=== PATIENT | male | born 1990 | race Caucasian/White ===

== ENCOUNTER 2018-12-08 07:54 | Emergency (ER) | payer BC, SELFPAY ==
[2018-12-08 07:55] VITALS: BP 154/94; PULSE 125; RESP 21; TEMP 36.9; O2SAT 97; BMI 32.3
--- NOTE | 2018-12-08 07:57 | RAD_ITS ---
STUDY: X-RAY CHEST REASON FOR EXAM: Male, 28 years old. Sudden onset of chest pain/pressure. TECHNIQUE: PA and lateral views of the chest. COMPARISON: None. FINDINGS: EKG electrodes are seen. The lungs are clear and expanded. There is no demonstrated pleural abnormality. Normal size heart. Normal mediastinum and alva. Normal visualized pulmonary arteries. Normal visualized aortic arch and descending thoracic aorta. Normal visualized thoracic spine. Normal visualized ribs, clavicles, and shoulders. There is no demonstrated abnormality of the visualized soft tissue structures of the upper abdomen. RAD/Chest PA and Lateral IMPRESSION: Normal x-ray examination of the chest. Electronically Signed: Scotty Johnson, at 8:22 EDT , Service support ,
--- NOTE | 2018-12-08 07:57 | EKG12_ITS ---
Test Reason : CP Blood Pressure : / mmHG Vent. Rate : 116 BPM Atrial Rate : 117 BPM P-R Int : 154 ms QRS Dur : 096 ms QT Int : 314 ms P-R-T Axes : 052 009 032 degrees QTc Int : 436 ms Sinus tachycardia Incomplete right bundle branch block Borderline ECG Confirmed by RK DOVE ([id number]), movie editor CAROLIN ARGUELLES ([id number]) on 12/16/2018 9:24:57 AM Referred By: TERESA Confirmed By:RK DOVE
[2018-12-08 08:02] VITALS: O2SAT 97
--- NOTE | 2018-12-08 08:03 | ED.VIS.CHEST ---
History of Present Illness Chief Complaint: Chest Pain Informant: Patient, EMS Onset: Today Activity at onset: Rest Timing: Continuous Quality: Tightness Location: Substernal Current Severity: Mild Maximum Severity: Moderate Worsened By: Nothing Relieved By: Nothing Associated Symptoms: Dyspnea, Lightheadedness Narrative: Patient presenting for evaluation secondary to chest pain. Patient reports that he was at work today and had a sudden onset of chest heaviness. This happened about 30 minutes prior to arrival. Patient states that it was associated with a mild amount of shortness of breath and lightheadedness. Patient states that he was doing some paperwork when this chest pain started. Patient has an underlying history of hypertension for which she is not treated. Patient is a non-smoker, but does use chewing tobacco. He denies any illicit drug use. He denies heavy caffeine use. He denies any DVT or PE risk factors. Review of systems otherwise negative. Past Medical History - Allergies and Home Meds Allergies/Adverse Reactions: Allergies No Known Allergies Allergy (Verified 12/08/18 08:02) Primary Care Physician: NOT,DEFINED [NON-STAFF] - Smoking Status: Former smoker Review of Systems All systems negative except as indicated Cardiovascular: Reports: Chest pain. Denies: Palpitations, Heart racing Respiratory: Reports: Dyspnea Physical Exam Vital Signs/Narrative: Vital Signs Temp Pulse Resp BP Pulse Ox 12/08/18 07:55 98.5 F 125 H 21 H 154/94 H 97 Inital Vital Signs reviewed: Yes General: Well nourished, Well developed, No Acute Distress Head: Normocephalic, Atraumatic Eyes: Perrl, EOMI ENT: Moist mucous membranes, No rhinorrhea Neck: Supple, Nontender Cardiovascular: Regular rhythm, No murmurs, Normal S1, Normal S2, Tachycardia, - - 2+ radial pulses bilaterally symmetric Abdomen: Soft, Nontender, Nondistended, Normal bowel sounds Extremities: Nontender, No edema. Negative for: Edema, Calf Tenderness Skin: Normal color, No rash Neurological: Alert, Oriented x3, Cranial nerves II-XII grossly intact, Normal Strength, Normal Sensation Psychological: Normal affect, Normal Mood Diagnostic/Tx/Re-eval - EKG Initial EKG Interpretation: - - Sinus tachycardia with a rate of 116. Normal VT and QTc intervals. Incomplete right bundle branch block morphology is noted with no evidence of acute ST segment changes or T wave changes. - Medical Decision Making Patient presented for evaluation secondary to chest pain. Patient was given aspirin and nitroglycerin and around. He was found to be somewhat tachycardic upon arrival. Chest x-ray was found to be unremarkable. CBC chemistry troponin and d-dimer were obtained which were also all found to be unremarkable. Patient's heart score is 1, I do not believe that he requires further work-up or admission. Patient's heart rate came down from about the 120s to 100. I reinterviewed the patient, and he feels that potentially this was precipitated by anxiety at work, and I would tend to agree with this. Patient's d-dimer was also negative. Patient was discharged with reassurance and follow-up with primary care. Disposition: Home ED Disposition - Plan for ED Patient: Disposition: Home or Assisted Living Diagnosis: Chest pain, Anxiety Instructions: ED Chest Pain NonCardiac Referrals: Osman Hinds, [STAFF PHYSICIAN] - As Needed
[2018-12-08 08:07] LABS: Absolute Lymphocyte Count 2.92 X10^3/ul (0.83-4.51); Absolute Neutrophil Count 4.9 X10^3/uL (2.0-7.7); Basophil# 0.05 X10^3/uL; Basophil% 0.6 % (0-1); Eosinophil# 0.48 X10^3/uL; Eosinophils% 5.3 % (0-5); Hematocrit 47.6 % (40-54); Hemoglobin 16.2 g/dl (13.0-16.5); Lymphocyte # 2.92 X10^3/ul (4.0); Lymphocyte % 32.3 % (19-41); Mean Corpuscular Hgb 31.2 pg (27.0-32.0); Mean Corpuscular Volume 91.7 fL (80-94); Mean Platelet Vol. 9.5 fl (6.2-12.0); Monocyte# 0.67 X10^3/uL; Monocyte% 7.4 % (0-10); Neutrophil # 4.91 X10^3/uL (2.7-7.7); Neutrophil % 54.2 % (47-70); Platelet Count 286 K/mm3 (150-450); RBC Distribution Width CV 12.5 % (11.6-14.6); RBC Distribution Width SD 42.1 fl (35.1-43.9); Red Blood Count 5.19 M/mm3 (4.6-6.2); White Blood Count 9.1 K/mm3 (4.4-11.0)
[2018-12-08 08:09] LABS: POSITIVE COUNT NO; POSITIVE DIFFERENTIAL NO; POSITIVE MORPHOLOGY NO
[2018-12-08] MEDS: 0.9% Normal Saline 1,000 ML 1000 ML IV (08:11)
[2018-12-08 08:22] LABS: Anion Gap 6 (5-15); BUN 8 mg/dL (7-18); BUN/Creat Ratio 7.5 RATIO (10-20); Calcium,Total 9.3 mg/dL (8.5-10.1); Chloride 105 mmol/L (98-107); Creatinine, Serum 1.06 mg/dL (0.70-1.30); EST Glomerular Filtration Rate 87 mL/min (>60); Est Glom Filt Rate - Afr Amer 106 mL/min (>60); Estimated Creatinine Clearance 106.17 ml/min; Glucose 120 mg/dL (74-106); Potassium 3.7 mmol/L (3.5-5.1); Sodium Level 138 mmol/L (136-145)
[2018-12-08 08:26] LABS: D-Dimer Quantitative (DVT/PE) < 0.27 FEU/ug/m (0.27-0.49)
[2018-12-08 08:41] VITALS: BP 154/99; PULSE 99; RESP 18; O2SAT 99
== END 2018-12-08 08:42 | disposition home or self-care (01) ==
PROVIDERS: Emergency Provider Emergency Medicine
DX: R07.9 Chest pain, unspecified (principal); F41.9 Anxiety disorder, unspecified; I45.10 Unspecified right bundle-branch block; I10 Essential (primary) hypertension; F17.220 Nicotine dependence, chewing tobacco, uncomplicated
CPT/HCPCS: 36415; 71046; 80048; 84484; 85025; 85379; 93005; 99285; J7030; A4216